=== PATIENT | male | born 1980 | race Caucasian/White ===

== ENCOUNTER 2020-06-06 07:04 | Emergency (ER) | payer MEDICAID ==
[~2020-06-06] VITALS: Ht 180 cm; Wt 70.0 kg
[2020-06-06 07:09] VITALS: BP 140/97
[2020-06-06] MEDS ORDERED: ALPR0.25 PO (07:24)
[2020-06-06] MEDS ORDERED: GABA-486 PO (07:24)
[2020-06-06] MEDS ORDERED: NAPR220C61 PO (07:24)
[2020-06-06] MEDS ORDERED: cefTRIAXone 1,000 MG/2.86 ml vial (IM ONLY) IM ONE (07:45)
[2020-06-06] MEDS ORDERED: LIDOCAINE 1% INJ 20 ML 20 ML VIAL INJ ONE (07:45)
--- NOTE | 2020-06-06 07:45 | ED EENT ---
History of Present Illness General Chief Complaint: Dental Problems/Pain Stated Complaint: DENTAL PAIN/SWELLING Nursing Triage Note: PT AMB TO ROOM 6 PT CO OF DENTAL PAIN IN L LOWER JAW, STARTED LAST PM, PT L JAW SWOLLEN AND PAINFUL. STATES STARTED LAST PM RATES PAIN 7/10 (BEBE LUU,) History of Present Illness Date Seen by Provider: Jun 06, 2020 Time Seen by Provider: 07:40 Initial Comments Mr. Mccauley is a 39-year-old male who presented to the [facility] ED for dental pain and facial swelling for one day. He states last night he had dental pain but then this am awoke with severe L-sided facial swelling and redness. He denies any fever/chills, chest pain, shortness of breath, difficulty breathing. Rates the pain 7/10. Took his regular Naproxen to help but did not. Timing/Duration: abrupt, yesterday Severity: moderate Location: mouth, dental Prearrival Treatment: prescription meds Associated Symptoms: facial pain/swelling, tooth pain (BEBE LUU,) Allergies and Home Medications Allergies Coded Allergies: Penicillins (Verified Allergy, Severe, Anaphylaxis, 06/06/20) Home Medications Chlorhexidine Gluconate 473 Ml Mouthwash, 10 ML MM BID 10 mL swish for 30 seconds and spit twice daily Prescribed by: DUYEN JASSO on 06/06/20 0811 Clindamycin HCl 150 Mg Capsule, 450 MG PO TID Prescribed by: DUYEN JASSO on 06/06/20 0811 Gabapentin 100 Mg Capsule, 100 MG PO Q8H, (Reported) Patient Home Medication List Home Medication List Reviewed: Yes (BEBE LUU,) Home Medication List Reviewed: Yes (DUYEN JASSO MD) Review of Systems Review of Systems Constitutional: No chills, No fever Eyes: Denies Blurred Vision, Denies Vision Changes Ears: No Symptoms Reported Nose: no symptoms reported Mouth: pain, swelling Throat: denies swelling, denies painful swallowing Respiratory: No cough, No short of breath Cardiovascular: No chest pain, No palpitations Gastrointestinal: No abdominal pain, No nausea, No vomiting Musculoskeletal: No joint pain, No muscle pain Skin: No dryness, No rash Neurological: Denies Headache (BEBE LUU,) Mouth: pain, swelling Throat: denies aphonia, denies muffled Respiratory: No short of breath Cardiovascular: No chest pain, No palpitations Skin: change in color (Redness to the left lower jaw area) (DUYEN JASSO MD) Past Gsvismk-Wsbkne-Cctteq Hx Past Med/Social Hx: Reviewed Nursing Past Med/Soc Hx (DUYEN JASSO MD) Patient Social History Alcohol Use: Denies Use Smoking Status: Current Everyday Smoker Type Used: Cigarettes Recent Infectious Disease Expo: No Recent Hopitalizations: No Substance type: Methamphetamine (historical use) (BEBE LUU,) Past Medical History Surgeries: Yes (LIPOSARCOMA L SHOULDER) Respiratory: No Cardiac: No Neurological: No Genitourinary: No Gastrointestinal: No Musculoskeletal: No Endocrine: No HEENT: No Cancer: Yes (LIPOSARCOMA) Did You Recieve Any Treatments: Yes Anxiety (BEBE LUU,) Family Medical History Reviewed Nursing Family Hx (DUYEN JASSO MD) Physical Exam Vital Signs Vital Signs - First Documented 06/06/20 07:09 Temp 35.1 Pulse 104 Resp 18 B/P (MAP) 140/97 (111) Pulse Ox 99 O2 Delivery Room Air (DUYEN JASSO MD) Height, Weight, BMI Height: '" Weight: lbs. oz. kg; 21.00 BMI Method: General Appearance: WD/WN, mild distress Eyes: bilateral eye PERRL, bilateral eye EOMI Mouth/Throat: dental tenderness, other (visible erythema on exam, mandibular swelling and tenderness on L-side) Neck: supple, normal inspection Cardiovascular: regular rate, rhythm, no murmur Respiratory: lungs clear, normal breath sounds, no respiratory distress Neurologic/Psychiatric: alert, normal mood/affect Skin: normal color, warm/dry (BEBE LUU,) General Appearance: WD/WN, mild distress Mouth/Throat: dental tenderness, other (visible erythema on exam, mandibular swelling and tenderness on L-side. Poor dentition overall. Dental caries with tenderness to left lower in the area of #20/21. Multiple missing teeth.) Cardiovascular: regular rate, rhythm, no murmur Respiratory: lungs clear, normal breath sounds (DUYEN JASSO MD) Progress/Results/Core Measures Results/Orders My Orders Orders - DUYEN JASSO MD Dexamethasone Injection (Decadron Inje (06/06/20 07:45) Ceftriaxone For Im Use (Rocephin For Im (06/06/20 07:45) Lidocaine 1% Inj 20 Ml (Xylocaine 1% Inj (06/06/20 07:45) (DUYEN JASSO MD) Medications Given in ED Current Medications Medications Dose Ordered Sig/Filomena Route Start Time Stop Time Status Last Admin Dose Admin Ceftriaxone Sodium 1,000 mg ONCE ONCE IM 06/06/20 07:45 06/06/20 07:46 DC 06/06/20 07:54 1,000 MG Dexamethasone Sodium Phosphate 10 mg ONCE ONCE IM 06/06/20 07:45 06/06/20 07:46 DC 06/06/20 07:54 10 MG Lidocaine HCl 2.1 ml ONCE ONCE INJ 06/06/20 07:45 06/06/20 07:46 DC 06/06/20 07:54 2.1 ML (DUYEN JASSO MD) Vital Signs/I&O 06/06/20 07:09 Temp 35.1 Pulse 104 Resp 18 B/P (MAP) 140/97 (111) Pulse Ox 99 O2 Delivery Room Air (DYUEN JASSO MD) Blood Pressure Mean: 111 Progress Progress Note : Time: 07:47 Progress Note Seen and examined. Exquisite tenderness to palpation over left mandible along with visible erythema and poor dentition. Due to acute changes and progressive facial swelling and pain, will order Rocephin 1g and Decadron IM. PCN allergy with anaphylaxis but patient states he has previously trialled Keflex without issue. Will send home with Clindamycin TID for 7 days and chlorhexidine mouth wash. (BEBE LUU,) Progress Note : Progress Note I have seen and evaluated the patient and agree with above except as indicated. I have directed the plan of care. Patient is here with rapid increased swelling to the left lower jaw since yesterday. Has had dental pain in the area of #20/21 (difficult to determine as he has multiple missing teeth). Does have facial erythema over area of concern with swelling over area of concern. Evaluation as above. Given the rapid swelling and pain, we will give Rocephin 1 g IM as well as Decadron 10 mg IM. We will initiate outpatient antibiotics. We did discuss pain control and patient does not want to use narcotics as he has previous addiction problems with that. He will continue naproxen and Tylenol. He will follow up with a dentist. Discharged home with return precautions. Patient verbalized understanding of instructions and agreement with plan. (DUYEN JASSO MD) Departure Impression Primary Impression: Dental caries Additional Impression: Dental abscess Disposition: 01 HOME, SELF-CARE Condition: Stable Departure-Patient Inst. Decision time for Depature: 08:06 (DUYEN JASSO MD) Referrals: YAYO AWAN MD (PCP/Family) Primary Care Physician Patient Instructions: Tooth Decay, Adult (DC), Tooth Abscess (DC) Add. Discharge Instructions: All discharge instructions reviewed with patient and/or family. Voiced understanding. Continue home medications as previously prescribed. You may add Tylenol/acetaminophen 1000 mg every 8 hours for pain. Use mouthwash as directed. Take other medications as prescribed. It is very important that you follow-up with the dentist. Return for worse pain, swelling, swallowing or breathing problems, fever or other concerns as needed. Scripts Chlorhexidine Gluconate (Chlorhexidine Gluconate) 473 Ml Mouthwash 10 ML MM BID, #473 ML 10 mL swish for 30 seconds and spit twice daily Prov: DUYEN JASSO MD 06/06/20 Clindamycin HCl (Clindamycin HCl) 150 Mg Capsule 450 MG PO TID for 7 Days, #63 CAP 0 Refills Prov: DUYEN JASSO MD 06/06/20 Images Mouth/Nose 1 - Caries, Swelling, Tenderness (DUYEN JASSO MD) BEBE LUU, Jun 06, 2020 07:45 DUYEN JASSO MD Jun 06, 2020 08:11
[2020-06-06] MEDS ORDERED: CLIN150C18 PO (08:11)
[2020-06-06] MEDS ORDERED: NFCHLORHGL MM (08:11)
== END 2020-06-06 08:14 | disposition home or self-care (01) ==
LOC: EDUNIT# 07:04 → ER 07:08
DX: K02.9 Dental caries, unspecified (principal); K04.7 Periapical abscess without sinus; I10 Essential (primary) hypertension; F17.210 Nicotine dependence, cigarettes, uncomplicated; Z88.0 Allergy status to penicillin; Z85.831 Personal history of malignant neoplasm of soft tissue
CPT/HCPCS: 99284

== ENCOUNTER 2020-12-23 18:50 | Emergency (ER) | payer MEDICAID ==
[~2020-12-23] VITALS: Ht 180 cm; Wt 67.6 kg
[~2020-12-23 18:50] MED LIST: ALPR0.25 PO; CLIN150C20 PO; GABA-486 PO; NAPR220C61 PO; NFCHLORHGL MM
[2020-12-23 18:55] VITALS: BP 158/99
--- OUTSIDE RECORDS SUMMARY | 2020-12-23 18:55 | XMS REPORT | Clinical Summary ---
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 If you d o not see the information that you expected, contact Release of Information in [facility] Information Management department at [phone] for further assistan ce in locating additional records.[facility] Allergies Comments Active Allergy Reactions Severity Noted Date Penicillins SHORTNESS OF Medium 12/04/2017 BREATH Shellfish Containing ANAPHYLAXIS High 8 Products Medications End Date Status Medication Sig Dispensed Refills Start Date Active ALPRAZolam (XANAX) 1 mg Take 1 mg by 0 tablet mouth twice daily as needed for Anxiety. Active other medication 1 Dose. 0 Medication Name & Strength: CBD oil Dose(how many): 1/2 dropperful Frequency(how often): 2-3 times per day Active other medication 1 Dose. 0 Medication Name & Strength: Nugenix testosterone booster Dose(how many): 1 cap Frequency(how often): three time dailys Active naproxen sodium(+) Take 1-2 0 (ALEVE) 220 mg tablet tablets by mouth four times daily as needed. Take with food. Active oxyCODONE (ROXICODONE, Take one 6 tablet 0 OXY-IR) 5 mg tablet tablet by 8 mouth every 4 hours as needed for Pain Active acetaminophen (TYLENOL) Take one 60 tablet 0 500 mg tablet tablet by 8 mouth every 6 hours. Max of 4,000 mg of acetaminophen in 24 hours. Active naproxen (NAPROSYN) 500 Take one 30 tablet 0 mg tablet tablet by 8 mouth twice daily with meals. Take with food. Active Problems Not on file Surgical History Surgery Date Site/Laterality Comments TOENAIL EXCISION as a child TUMOR RESECTION 12/12/2017 Arm Upper/Left RESECTION LEFT UPPER ARM MASS performed by Adrienne Pedersen MD at [facility] Medical History Medical History Date Comments Mass of arm Social History Date Tobacco Use Types Packs/Day Years Used Current Every Day Smoker 0.5 26 Smokeless Tobacco: Never Used Comments Alcohol Use Standard Drinks/Week No 0 (1 standard drink = 0.6 o z pure alcohol) Sex Assigned at Date Recorded Not on file Last Filed Vital Signs Reading Time Taken Comments Vital Sign 126/95 12/12/2017 10:00 AM CDT Blood Pressure 85 12/12/2017 10:00 AM CDT Pulse 36.5 C (97.7 F) 12/12/2017 10:00 AM CDT Temperature - - Respiratory Rate 99% 12/12/2017 10:00 AM CDT Oxygen Saturation - - Inhaled Oxygen Concentration 67.6 kg (149 lb) 01/01/2018 9:30 AM CDT Weight 180.3 cm (5' 11") 01/01/2018 9:30 AM CDT Height 20.78 01/01/2018 9:30 AM CDT Body Mass Index Plan of Treatment Health Maintenance Due Date Last Done Comments HIV SCREENING 1993 DTAP/TDAP VACCINES ( - 1996 Tdap) HEPATITIS C SCREENING 1996 PHYSICAL (COMPREHENSIVE) 1996 EXAM INFLUENZA VACCINE 10/11/2020 Results Not on filefrom Last 3 Months Insurance Type Payer Benefit Subscriber ID Effective Phone Address Plan / Dates Group Medicaid [facility] MEDICAID [facility] [id number] 2017-P [facility] 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
[2020-12-23] MEDS ORDERED: TETRACAINE 0.5% OPHTH SOLN 4 ML BTL (SINGLE DOSE ONLY) OU ONE (19:00)
[2020-12-23] MEDS ORDERED: FLUORESCEIN (FLUOR-I-STRIPS) 1 MG STRP OU ONE (19:00)
[2020-12-23] MEDS ORDERED: BSS 15 ML IR ONE (19:00)
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
[2020-12-23] MEDS ORDERED: CIPR2.5D3 OP (19:15)
== END 2020-12-23 19:23 | disposition home or self-care (01) ==
LOC: EDUNIT# 18:50 → ER 18:52
DX: S05.01XA Injury of conjunctiva and corneal abrasion without foreign body, right eye, initial encounter (principal); F41.9 Anxiety disorder, unspecified; F17.210 Nicotine dependence, cigarettes, uncomplicated; Z79.899 Other long term (current) drug therapy; W22.8XXA Striking against or struck by other objects, initial encounter
CPT/HCPCS: 99281

== ENCOUNTER 2021-01-27 03:00 | Emergency (ER) | payer MEDICAID ==
[~2021-01-27] VITALS: Ht 180 cm; Wt 67.0 kg
[~2021-01-27 03:00] MED LIST changes: +CIPR2.5D3 OP
[2021-01-27 03:24] LABS: BASOPHILS % (AUTO) 0 % (0-10); EOSINOPHILS # (AUTO) 0.2 10^3/uL (0.0-0.3); EOSINOPHILS % (AUTO) 2 % (0-10); HEMATOCRIT 44 % (40-54); HEMOGLOBIN 14.4 g/dL (13.3-17.7); LYMPHOCYTES # (AUTO) 2.6 10^3/uL (1.0-4.0); LYMPHOCYTES % (AUTO) 18 % (12-44); MEAN CORPUSCULAR HEMOGLOBIN 30 pg (25-34); MEAN CORPUSCULAR HGB CONC 33 g/dL (32-36); MEAN CORPUSCULAR VOLUME 91 fL (80-99); MEAN PLATELET VOLUME 9.2 fL (9.0-12.2); MONOCYTES # (AUTO) 0.8 10^3/uL (0.0-1.0); MONOCYTES % (AUTO) 6 % (0-12); NEUTROPHILS # (AUTO) 10.8 10^3/uL (1.8-7.8); NEUTROPHILS % (AUTO) 74 % (42-75); PLATELET COUNT 276 10^3/uL (130-400); WHITE BLOOD COUNT 14.5 10^3/uL (4.3-11.0)
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
[2021-01-27 03:35] LABS: ALBUMIN 4.2 GM/DL (3.2-4.5); CHLORIDE 103 MMOL/L (98-107); POTASSIUM 3.9 MMOL/L (3.6-5.0); PROTHROMBIN TIME PATIENT 13.8 SEC (12.2-14.7); SODIUM 139 MMOL/L (135-145)
[2021-01-27 03:37] LABS: AMYLASE 51 U/L (25-125)
[2021-01-27 03:38] LABS: GLUCOSE 84 MG/DL (70-105); TOTAL PROTEIN 7.1 GM/DL (6.4-8.2)
[2021-01-27 03:39] LABS: CARBON DIOXIDE 24 MMOL/L (21-32)
[2021-01-27 03:40] LABS: BILIRUBIN,TOTAL 0.4 MG/DL (0.1-1.0)
[2021-01-27 03:41] LABS: ALKALINE PHOSPHATASE 80 U/L (40-136)
[2021-01-27 03:42] LABS: CREATININE SERUM 0.92 MG/DL (0.60-1.30); GFR ESTIMATED 90
[2021-01-27 03:43] LABS: BUN/CREATININE RATIO 20
[2021-01-27 03:45] LABS: ALANINE AMINOTRANSFERASE 23 U/L (0-55); MAGNESIUM 1.9 MG/DL (1.6-2.4)
[2021-01-27 03:46] LABS: CREATINE KINASE 387 U/L (30-200); LIPASE 32 U/L (8-78)
[2021-01-27 04:02] LABS: ACETAMINOPHEN < 10 UG/ML (10-30)
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
[2021-01-27] MEDS ORDERED: fentaNYL INJ 100 MCG/2 ML AMP IVP ONE (04:45)
[2021-01-27] MEDS ORDERED: LACTATED RINGERS 1,000 ML IV ONE (04:45)
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
[2021-01-27 04:53] LABS: BILIRUBIN,URINE NEGATIVE (NEGATIVE); CLARITY,URINE CLEAR; COLOR,URINE YELLOW; GLUCOSE, URINE (UA) NEGATIVE (NEGATIVE); KETONES,URINE NEGATIVE (NEGATIVE); LEUKOCYTE ESTERASE ,URINE NEGATIVE (NEGATIVE); NITRITE,URINE NEGATIVE (NEGATIVE); PH,URINE 6.5 (5-9); PROTEIN,URINE NEGATIVE (NEGATIVE)
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
[2021-01-27 05:00] LABS: BACTERIA,URINE NEGATIVE /HPF; SQUAMOUS EPITHELIAL CELL,UR RARE /HPF
[2021-01-27] MEDS ORDERED: CYCL10TA9 PO (05:01)
[2021-01-27] MEDS ORDERED: MUPI22OI2 TP (05:01)
[2021-01-27] MEDS ORDERED: ACHD5005 PO (05:01)
[2021-01-27 05:04] LABS: AMPHETAMINE SCREEN, URINE POSITIVE (NEGATIVE); BARBITURATE SCREEN URINE NEGATIVE (NEGATIVE); BENZODIAZEPINES SCREEN URINE NEGATIVE (NEGATIVE); CANNABINOID SCREEN, URINE NEGATIVE (NEGATIVE); COCAINE SCREEN URINE NEGATIVE (NEGATIVE); METHAMPHETAMINE SCREEN URINE S POSITIVE (NEGATIVE); OPIATE SCREEN URINE NEGATIVE (NEGATIVE)
[2021-01-27 05:05] LABS: METHADONE STAT NEGATIVE (NEGATIVE); OXYCODONE STAT NEGATIVE (NEGATIVE); PROPOXYPHENE STAT NEGATIVE (NEGATIVE); TRICYCLIC ANTIDEPRESSANTS SCRE NEGATIVE (NEGATIVE)
[2021-01-27 06:34] VITALS: BP 147/96
== END 2021-01-27 06:19 | disposition home or self-care (01) ==
LOC: EDUNIT# 03:00 → ER 03:06
DX: S92.252A Displaced fracture of navicular [scaphoid] of left foot, initial encounter for closed fracture (principal); S20.212A Contusion of left front wall of thorax, initial encounter; S30.1XXA Contusion of abdominal wall, initial encounter; S70.02XA Contusion of left hip, initial encounter; S70.12XA Contusion of left thigh, initial encounter; S80.02XA Contusion of left knee, initial encounter; S80.12XA Contusion of left lower leg, initial encounter; F15.90 Other stimulant use, unspecified, uncomplicated; F41.9 Anxiety disorder, unspecified; F17.210 Nicotine dependence, cigarettes, uncomplicated; Z79.899 Other long term (current) drug therapy; V29.9XXA Motorcycle rider (driver) (passenger) injured in unspecified traffic accident, initial encounter
CPT/HCPCS: 70450; 71045; 71260; 72125; 72128; 72131; 73030; 73502; 73552; 73590; 73630; 74177; 80053; 80306; 81000; 82150; 82550; 82553; 83690; 83735; 83874; 85025; 85610; 85730; 93041; 99284; G0480 ×2; 36415; 80320; 80329; 96361; 96374

== ENCOUNTER 2022-05-23 17:27 | Emergency (ER) | payer MEDICAID ==
[~2022-05-23 17:27] MED LIST changes: +ACHD5005 PO; +CYCL10TA25 PO; +MUPI22OI2 TP
--- NOTE | 2022-05-23 17:41 | ED Cough/URI ---
General Chief Complaint: Cough/Cold/Flu Symptoms Stated Complaint: 104 FEVER,BODYACHES,CHILLS,COUGH,COLD SYMPTOMS Source: patient Exam Limitations: no limitations History of Present Illness Date Seen by Provider: May 23, 2022 Time Seen by Provider: 17:28 Initial Comments 41-year-old male presents for cough fever and some slight shortness of breath. Symptoms started yesterday evening and persisted through the day today. Fever to 104 when taken orally. He did not take any medications for this. No nausea or vomiting. No chest pain. No abdominal pain or changes in bowel or bladder habits. No sick contacts. All other systems reviewed and negative except documented per HPI. Voice recognition software was used to help create this chart Allergies and Home Medications Allergies Coded Allergies: Penicillins (Verified Allergy, Severe, Anaphylaxis, 06/06/20) Patient Home Medication List Home Medication List Reviewed: Yes Alprazolam (Xanax) 0.25 Mg Tablet, 0.25 MG PO, (Reported) Entered as Reported by: CRISTINO LAND on 06/06/20723 Chlorhexidine Gluconate (Chlorhexidine Gluconate) 473 Ml Mouthwash, 10 ML MM BID Prescribed by: DUYEN JASSO on 06/06/20 08 Ciprofloxacin HCl (Ciprofloxacin HCl) 2.5 Ml Drops, 2.5 ML OP QID Prescribed by: ROXANA PALACIOS on 12/23/201914 Clindamycin HCl (Clindamycin HCl) 150 Mg Capsule, 450 MG PO TID Prescribed by: DUYEN JASSO on 06/06/20 08 Cyclobenzaprine HCl (Cyclobenzaprine HCl) 10 Mg Tablet, 10 MG PO Q8H PRN for SPASMS Prescribed by: ROXANA PALACIOS on 01/27/21 050 Gabapentin (Gabapentin) 100 Mg Capsule, 100 MG PO Q8H, (Reported) Entered as Reported by: CRISTINO LAND on 06/06/20723 Hydrocodone/Acetaminophen (Hydrocodone-Acetamin 5-325 mg) 1 Each Tablet, 1 EACH PO Q4-6 HOURS PRN for PAIN Prescribed by: ROXANA PALACIOS on 01/27/21 050 Mupirocin (Mupirocin) 22 Gm Oint...g., 22 GM TP BID Prescribed by: ROXANA PALACIOS on 01/27/21 050 Naproxen Sodium (Naproxen Sodium) 220 Mg Capsule, 220 MG PO, (Reported) Entered as Reported by: CRISTINO LAND on 06/06/20 0724 Review of Systems Review of Systems Constitutional: fever Past Wkpqsrj-Rhwkqe-Xciman Hx Patient Social History Tobacco Use?: Yes Tobacco type used: Cigarettes Smoking Status: Current Everyday Smoker Use of E-Cig and/or Vaping dev: No Substance use?: Yes Substance type: Methamphetamine Substance frequency: Daily Alcohol Use?: No Pt feels they are or have been: No Past Medical History Surgery/Hospitalization HX: "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 oz. kg; 20.00 BMI Method: General Appearance: WD/WN, no apparent distress HEENT: normal ENT inspection, pharynx normal Neck: non-tender, supple, normal inspection Respiratory: chest non-tender, lungs clear, normal breath sounds, no respiratory distress, no accessory muscle use Cardiovascular: no edema, no murmur, tachycardia Gastrointestinal: normal bowel sounds, non tender, soft Extremities: non-tender, normal inspection, normal capillary refill Neurologic/Psychiatric: alert, oriented x 3 Skin: normal color, warm/dry Progress/Results/Core Measures Suspected Sepsis SIRS Temperature: Pulse: Respiratory Rate: Blood Pressure / Mean: Results/Orders My Orders Orders - LYNDON TORRES DO Acetaminophen Tablet (Tylenol Tablet) (05/23/22 17:45) Chest Pa/Lat (2 View) (05/23/22 17:37) Medications Given in ED Current Medications Medications Dose Ordered Sig/Filomena Route Start Time Stop Time Status Last Admin Dose Admin Acetaminophen 1,000 mg ONCE ONCE PO 05/23/22 17:45 05/23/22 17:46 DC 05/23/22 17:45 1,000 MG Vital Signs/I&O 05/23/22 05/23/22 17:33 17:45 Temp 39.3 39.3 Pulse 127 Resp 16 B/P (MAP) 149/101 (117) Pulse Ox 100 O2 Delivery Room Air Capillary Refill : Departure Communication (Admissions) Patient's chest x-ray is clear. He likely has a viral URI. Possible COVID. No indication for testing at this time as he does meet criteria for treatment with Paxlovid. He will be discharged in stable condition with supportive care. Impression Primary Impression: Fever Qualified Codes: R50.9 - Fever, unspecified Additional Impression: URI (upper respiratory infection) Qualified Codes: J06.9 - Acute upper respiratory infection, unspecified Disposition: HOME, SELF-CARE Condition: Stable Departure-Patient Inst. Referrals: YAYO AWAN MD (PCP/Family) Primary Care Physician Patient Instructions: Upper Respiratory Infection ED Add. Discharge Instructions: Increase your fluids at home, rest. You need to be fever free for 24 hours before returning to work. Follow-up with your primary doctor for any nonemergent needs. Return to the emergency department for any severe shortness of breath or if your symptoms change in any other way concerning to you. Alternate Tylenol and ibuprofen as needed for fevers. All discharge instructions reviewed with patient and/or family. Voiced understanding. LYNDON TORRES DO May 23, 2022 17:41
[2022-05-23] MEDS ORDERED: ACETAMINOPHEN 500 MG TAB (TYLENOL) PO ONE (17:45)
--- NOTE | 2022-05-23 17:59 | Diagnostic Imaging Report ---
INDICATION: Cough and fever. EXAMINATION: PA and lateral chest. FINDINGS: Heart size and pulmonary vascularity are normal. Lungs are clear. There are no effusions or pneumothoraces. IMPRESSION: Negative chest. Dictated by: Dictated on workstation # [id number]
[2022-05-23 18:04] VITALS: BP 149/101
== END 2022-05-23 18:05 | disposition home or self-care (01) ==
LOC: EDUNIT# 17:27 → ER FS 17:29
DX: J06.9 Acute upper respiratory infection, unspecified (principal); F17.210 Nicotine dependence, cigarettes, uncomplicated; Z28.310 Unvaccinated for COVID-19
CPT/HCPCS: 71046

== ENCOUNTER 2023-02-05 19:49 | Emergency (ER) | payer MEDICAID ==
[~2023-02-05] VITALS: Ht 180 cm; Wt 65.0 kg
[~2023-02-05 19:49] MED LIST changes: +CIPR2.5D18 OP; -CIPR2.5D3 OP
[2023-02-05 20:00] VITALS: BP 132/93
[2023-02-05] MEDS ORDERED: TETRACAINE 0.5% OPHTH SOLN 5 ML BTL OP ONE (20:00)
[2023-02-05] MEDS ORDERED: TETRACAINE 0.5% OPHTH SOLN 4 ML BTL (SINGLE DOSE ONLY) ONE (20:10)
[2023-02-05] MEDS ORDERED: FLUORESCEIN 1 MG OPHTHALMIC STRIPS OP ONE (20:15)
--- NOTE | 2023-02-05 20:33 | ED EENT ---
History of Present Illness General Chief Complaint: Eye Problems Stated Complaint: DEBRI IN LEFT EYE Source: patient Exam Limitations: no limitations History of Present Illness Date Seen by Provider: Feb 05, 2023 Time Seen by Provider: 20:31 Initial Comments Patient is a 42-year-old male who presents to ED with left eye redness. Patient states he was blowing leaves yesterday as well as burning. Patient denies of any specific injury. Woke up with some redness discomfort of the left eye. Has been using his Visine eyedrops at home. Patient states he does have some blurry vision left eye but that is fairly chronic. Unsure if he left his contact in his left eye. Attempted to irrigate at home. Denies of any complete visual loss, pain with eye movement, extreme pain, headache or dizziness. Up-to-date on his tetanus. Patient reports some clear drainage of the left eye. Denies any purulent drainage. Is concerned he may have scratched his eye. Allergies and Home Medications Allergies Coded Allergies: Penicillins (Verified Allergy, Severe, Anaphylaxis, 06/06/20) Patient Home Medication List Home Medication List Reviewed: Yes Alprazolam (Xanax) 0.25 Mg Tablet, 0.25 MG PO, (Reported) Entered as Reported by: CRISTINO LAND on 06/06/20723 Chlorhexidine Gluconate (Chlorhexidine Gluconate) 473 Ml Mouthwash, 10 ML MM BID Prescribed by: DUYEN JASSO on 06/06/20 08 Ciprofloxacin HCl (Ciprofloxacin HCl) 2.5 Ml Drops, 2.5 ML OP QID Prescribed by: ROXANA PALACIOS on 12/23/20 191 Clindamycin HCl (Clindamycin HCl) 150 Mg Capsule, 450 MG PO TID Prescribed by: DUYEN JASSO on 06/06/20 0811 Cyclobenzaprine HCl (Cyclobenzaprine HCl) 10 Mg Tablet, 10 MG PO Q8H PRN for SPASMS Prescribed by: ROXANA PALACIOS on 01/27/21 0501 Gabapentin (Gabapentin) 100 Mg Capsule, 100 MG PO Q8H, (Reported) Entered as Reported by: CRISTINO LAND on 06/06/20 0724 Hydrocodone/Acetaminophen (Hydrocodone-Acetamin 5-325 mg) 1 Each Tablet, 1 EACH PO Q4-6 HOURS PRN for PAIN Prescribed by: ROXANA PALACIOS on 01/27/21 0501 Mupirocin (Mupirocin) 22 Gm Oint...g., 22 GM TP BID Prescribed by: ROXANA PALACIOS on 01/27/21 0501 Naproxen Sodium (Naproxen Sodium) 220 Mg Capsule, 220 MG PO, (Reported) Entered as Reported by: CRISTINO LAND on 06/06/20 0724 Review of Systems Review of Systems Constitutional: No chills, No diaphoresis, No malaise, No weakness Eyes: Blurred Vision; Denies Drainage, Denies Decreased Acuity Ears: Denies Dizziness, Denies Pain Nose: denies clots, denies congestion Mouth: denies clots, denies loose teeth Throat: denies pain, denies swelling Respiratory: No cough, No dyspnea on exertion Cardiovascular: No chest pain Gastrointestinal: No abdominal pain, No constipation, No diarrhea, No nausea, No vomiting Musculoskeletal: No back pain, No joint pain, No joint swelling, No muscle pain Skin: No change in color, No change in hair/nails All Other Systems Reviewed Negative Unless Noted: Yes Past Vckeleg-Kfpekk-Dillln Hx Past Medical History Surgery/Hospitalization HX: "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 oz. kg; 20.00 BMI Method: General Appearance: WD/WN, no apparent distress Eyes: bilateral eye normal inspection, bilateral eye PERRL, bilateral eye EOMI Ears: left ear other (Left eye erythematous injection, lytic flush. No obvious abrasion, ulcer. Negative Akil sign. Extract movements intact without pain. 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 (02/05/23 20:00) Fluorescein Ophthalmic Strips (Fluoresce (02/05/23 20:15) Tetracaine 0.5% Ophth Em Sdv (Tetracai (02/05/23 20:10) Rx-Poly/Trimeth Ophth (Rx-Polytrim Ophth (02/05/23 20:45) Medications Given in ED Current Medications Medications Dose Ordered Sig/Filomena Route Start Time Stop Time Status Last Admin Dose Admin Fluorescein Sodium ONCE ONCE OP 02/05/23 20:15 02/05/23 20:16 DC 02/05/23 21:03 1 MG Polymyxin/ Trimethoprim Sulfate 1 ml ONCE ONCE OP 02/05/23 20:45 02/05/23 20:46 DC 02/05/23 21:05 1 ML Tetracaine HCl 4 ml STK-MED ONCE .ROUTE 02/05/23 20:10 02/05/23 20:15 DC 02/05/23 21:04 4 ML Vital Signs/I&O 02/05/23 20:00 Temp 36.0 Pulse 97 Resp 16 B/P (MAP) 132/93 (106) Departure Communication (PCP) Patient presents to ED for left eye redness. Redness started this morning when he woke up. Patient states he was blowing leaves yesterday as well as burning the leaves. Unsure if he got something into his left eye. Denies of any specific pain. Reports some burning pain left upper outer eye. Exam shows a erythematous injection and limbic flush. No pain with eye movement. Extraocular movements intact. Does wear contacts unsure if he slept with the contacts in. Did use Visine at home. On exam no evidence of contacts. Fluorescein eye strip with tetracaine was used. Negative Akil signs. No significant uptake. No ulcer or obvious abrasion. No obvious foreign body. Did attempt to obtain pressure which I only got 1 pressure of 18. Had issues with our Bryan-Pen working. Not necessarily concern for increased intraocular pressure. Visual acuity bilateral 20/25. Left eye 20/30, right eye 20/20. Does have his contact in his right eye. Irrigated with normal saline of the left eye. Eye inflammation could be secondary to smoke versus contacts left in, or irritation from foreign body. Other etiologies would be conjunctivitis versus iritis. However unlikely iritis secondary to no pain with eye movement or photophobia. There is no evidence of abrasion at this time. Will discharge with Polytrim prophylactically. Does follow-up with [facility] which I recommend following up in the next 1 to 2 days for reevaluation. If any worsen ing symptoms to return back to ED. Impression Primary Impression: Eye irritation Disposition: 01 HOME, SELF-CARE Condition: Stable Departure-Patient Inst. Decision time for Depature: 20:46 Referrals: RIGO DENG OD,LOCAL PHYSICIAN (PCP) Primary Care Physician Patient Instructions: Conjunctivitis ([facility]) ED Add. Discharge Instructions: Take antibiotics as prescribed. Follow-up with ophthalmology for further evaluation. All discharge instructions reviewed with patient and/or family. Voiced understanding. MONIQUE BETANCUR Feb 05, 2023 20:33
[2023-02-05] MEDS ORDERED: RX-POLY/TRIMETH (POLYTRIM) OP 10 ML BTL OP ONE (20:45)
== END 2023-02-05 21:05 | disposition home or self-care (01) ==
LOC: EDUNIT# 19:49 → ER 19:51
DX: H57.89 Other specified disorders of eye and adnexa (principal)
CPT/HCPCS: 99281